=== PATIENT | female | born 1960 | race Caucasian/White ===

== ENCOUNTER 2023-07-02 16:31 | Emergency (ER) | payer MEDICAID, SELFPAY ==
[2023-07-02] MEDS ORDERED: Acetaminophen 500 MG TAB ONE (16:59)
[2023-07-02 17:21] LABS: Bilirubin Negative (Negative); Blood, Urine Small (Negative); Clarity Clear (Clear); Glucose, Urine (Dipstick) Negative (Negative); Ketone, Urine Negative (Negative); Leukocyte Negative (Negative); Nitrite Negative (Negative); Protein, Urine (Dipstick) Negative (Neg-Trace); Specific Gravity, Urine 1.025 (1.005-1.030); Urobilinogen 0.2 mg/dL (Less than 2); pH, Urine 5.5 (5.0-9.0)
[2023-07-02 17:27] LABS: Bacteria/HPF 2+ HPF (None Seen); CAUTI Indications for Culture Acute Hematuria; WBC/HPF 0-3 HPF (0-3); Yeast-Budding Rare HPF (None Seen)
[2023-07-02 17:28] LABS: Mucous/LPF 1+ LPF (<2+); Urine Culture Reflex No No
[2023-07-02 18:01] LABS: Influenza A by NAA Not Detected (NotDetected); Influenza B by NAA Not Detected (NotDetected); SARS-CoV-2 NAA Rapid Test DETECTED (NotDetected)
== END 2023-07-02 18:15 | disposition home or self-care (01) ==
LOC: BURERS 16:31
DX: U07.1 COVID-19 (principal); B37.31 Acute candidiasis of vulva and vagina; Z87.891 Personal history of nicotine dependence
CPT/HCPCS: 81001; 87081; 87086; 87430; 96360